=== PATIENT | male | born 2000 | race Caucasian/White ===

== ENCOUNTER 2020-05-09 11:13 | Emergency (ER) | payer OTHER ==
[~2020-05-09] VITALS: Ht 172.7 cm; Wt 72.7 kg
[2020-05-09 11:26] VITALS: BP 121/88
[2020-05-09] MEDS ORDERED: BENZ-16 PO (11:46)
== END 2020-05-09 12:16 | disposition home or self-care (01) ==
LOC: ER 11:13
DX: R06.02 Shortness of breath (principal); R09.89 Other specified symptoms and signs involving the circulatory and respiratory systems; R07.89 Other chest pain; Z20.828 Contact with and (suspected) exposure to other viral communicable diseases; Z79.899 Other long term (current) drug therapy
CPT/HCPCS: 36415; 87635; 99283